=== PATIENT | female | born 1980 | race Hispanic/Latino ===

== ENCOUNTER 2021-10-21 19:11 | Emergency (ER) | payer MEDICAID, OTHER ==
[~2021-10-21] VITALS: Ht 152.4 cm; Wt 71.7 kg
[~2021-10-21 19:11] MED LIST: ACET1TAB12 PO; DOCU-116 PO; IBUP-2077 PO
[2021-10-21 20:09] VITALS: BP 147/79
[2021-10-21] MEDS ORDERED: FAMOTIDINE 20MG VIAL IV ONE (20:30)
[2021-10-21] MEDS ORDERED: SOLU-MEDROL 125MG VIAL IVP ONE (20:30)
[2021-10-21] MEDS ORDERED: DIPHENHYDRAMINE HCL 25 MG CAPSULE PO ONE (20:30)
[2021-10-21] MEDS ORDERED: CETI1SOL17 PO (21:14)
[2021-10-21] MEDS ORDERED: PRED20TA3 PO (21:14)
== END 2021-10-21 21:53 | disposition home or self-care (01) ==
LOC: EDH 19:11
DX: T78.3XXA Angioneurotic edema, initial encounter (principal); Z79.1 Long term (current) use of non-steroidal anti-inflammatories (NSAID); Z79.52 Long term (current) use of systemic steroids; E66.9 Obesity, unspecified; Z68.30 Body mass index [BMI] 30.0-30.9, adult
CPT/HCPCS: J2930; J3490; Q0163